=== PATIENT | male | born 1960 | race Hispanic/Latino ===

== ENCOUNTER 2023-04-03 07:27 | Day surgery (SDC) | payer OTHER ==
[2023-03-30 11:14] VITALS: BP 142/90; PULSE 77; RESP 16
[2023-03-30 11:22] LABS: BASOPHILS # (AUTO) 0.03 K/uL (0.00-0.20); BASOPHILS % (AUTO) 0.5 % (0.0-5.0); EOSINOPHILS # (AUTO) 0.14 K/uL (0.00-0.70); EOSINOPHILS % (AUTO) 2.5 % (0.0-8.0); HEMATOCRIT 40.8 % (42-54); IMMATURE GRANULOCYTE ABSOLUTE 0.03 K/uL (0-1); LYMPHOCYTES # (AUTO) 2.2 K/uL (1.0-4.8); LYMPHOCYTES % (AUTO) 38.3 % (21.0-51.0); MEAN CORPUSCULAR HEMOGLOBIN 30.7 pg (27.0-33.0); MEAN CORPUSCULAR HGB CONC 34.6 g/dL (32.0-36.0); MEAN CORPUSCULAR VOLUME 88.9 fL (79-99); MONOCYTES # (AUTO) 0.5 K/uL (0.1-1.0); MONOCYTES % (AUTO) 9.4 % (3.0-13.0); NEUTROPHILS # (AUTO) 2.7 K/uL (1.8-7.7); NEUTROPHILS % (AUTO) 48.8 % (40.0-77.0); PLATELET COUNT (AUTO) 210 K/uL (130-400); RED BLOOD CELL COUNT(AUTO) 4.59 MIL/uL (4.50-6.20); RED CELL DISTRIBUTION WIDTH 12.2 % (11.0-15.5); WHITE BLOOD COUNT (AUTO) 5.6 K/uL (4.8-10.8)
[2023-03-30 11:32] LABS: CREATININE 0.9 mg/dL (0.5-1.5)
[2023-03-30 11:34] LABS: INR 0.94 (0.85-1.15)
[2023-03-30 11:36] LABS: PARTIAL THROMBOPLASTIN TIME 28.1 SEC (26.3-35.5)
[2023-03-30 11:55] LABS: B-TYPE NATRIURETIC PEPTIDE 24 pg/mL (0-100)
[~2023-04-03] VITALS: Ht 170.2 cm; Wt 96.7 kg
[2023-04-03] VITALS (8 sets, daily range): BP systolic 100–144; BP diastolic 65–86; PULSE 71–83; RESP 13–18
[~2023-04-03 07:27] MED LIST: CARV6.2579 PO; CETI10TA57 PO; HYDR-3830 PO; LOSA25TA41 PO; MONT-39 PO; PARO10TA71 PO
[2023-04-03] MEDS ORDERED: 0.9%NACL 1000ML 1,000 ML IV ONE (08:36)
[2023-04-03] MEDS ORDERED: TIOT4MIS2 IH (09:16)
[2023-04-03] MEDS ORDERED: MOME13HF12 IH (09:16)
[2023-04-03] MEDS ORDERED: ROPI2TAB53 PO (09:16)
[2023-04-03] MEDS ORDERED: AEC81 PO (09:16)
[2023-04-03] MEDS ORDERED: KETO-99 OP (09:16)
[2023-04-03] MEDS ORDERED: GUAIFENESIN-CODEINE 5 ML SYRUP PO ONE (10:00)
[2023-04-03] MEDS ORDERED: NITROGLYCERIN 50MG VIAL ONE (12:41)
[2023-04-03] MEDS ORDERED: LIDOCAINE HCL 400MG/20ML VIAL ONE (12:41)
[2023-04-03] MEDS ORDERED: HEPARIN 10,000 UNIT/10ML (1,000 UNIT/ML) VIAL ONE (12:41)
[2023-04-03] MEDS ORDERED: IOHEXOL 350 MG/ML 100ML INFUS..BTL IV ONE (12:42)
[2023-04-03] MEDS ORDERED: FENTANYL CITRATE PF 50 MCG/1 ML 2ML VIAL ONE (13:37)
[2023-04-03] MEDS ORDERED: MIDAZOLAM HCL 1 MG/ML 2ML VIAL ONE (13:38)
[2023-04-03] MEDS ORDERED: IOHEXOL-350 50ML VIAL IV ONE (14:08)
[2023-04-03] MEDS ORDERED: 0.9%NACL 1000ML 1,000 ML IV SCH (14:30)
== END 2023-04-03 17:35 | disposition home or self-care (01) ==
LOC: DAH 07:27 → EDSEX 08:00 → DAH 17:35
PROVIDERS: ATTEND Internal Medicine Interventional Cardiology
DX: I25.10 Atherosclerotic heart disease of native coronary artery without angina pectoris (principal); I42.0 Dilated cardiomyopathy; I11.0 Hypertensive heart disease with heart failure; I50.22 Chronic systolic (congestive) heart failure; E66.9 Obesity, unspecified; G60.8 Other hereditary and idiopathic neuropathies; M79.609 Pain in unspecified limb; Z79.01 Long term (current) use of anticoagulants; Z79.82 Long term (current) use of aspirin; Z79.899 Other long term (current) drug therapy; Z68.32 Body mass index [BMI] 32.0-32.9, adult
CPT/HCPCS: 80048; 83880; 85025; 85610; 85730; 36415; 71045; 93005; 96360; 96361; 93458; A4223 ×3; Q9965; C1894 ×2; C1760; J3010; J3490 ×2; J7030; J2250; J1644; Q9967 ×2; A4215; A4222; A4221; A4663; A4216; A4606; 99156; 99157

== ENCOUNTER → 2023-10-22 | Outpatient (CLI) | payer OTHER ==
[~2023-10-22] VITALS: Ht 170.2 cm; Wt 95.3 kg
[~2023-10-22] MED LIST changes: +AEC81 PO; +ALBU18HF7 IH; +CHOL100040 PO; +FLUT1BLS9 IH; +GABA300C PO; +HYDR-3421 PO; +KETO-99 OP; +KETOROLAC 30MG VIAL (30MG/ML) ONE; +MOME13HF12 IH; +OLOP5DRO26 OU; +PARO30TA60 PO; +ROPI2TAB53 PO; +ROPIVACAINE 0.5% 5MG/ML 30ML ONE; +SACU1TAB7 PO; +TIOT4MIS2 IH; +TRANEXAMIC ACID 1000MG/10ML ONE
[2023-10-22 11:46] LABS: BASOPHILS # (AUTO) 0.03 K/uL (0.00-0.20); BASOPHILS % (AUTO) 0.6 % (0.0-5.0); EOSINOPHILS # (AUTO) 0.23 K/uL (0.00-0.70); EOSINOPHILS % (AUTO) 4.9 % (0.0-8.0); IMMATURE GRANULOCYTE ABSOLUTE 0.01 K/uL (0-1); LYMPHOCYTES # (AUTO) 2.1 K/uL (1.0-4.8); MEAN CORPUSCULAR HEMOGLOBIN 30.9 pg (27.0-33.0); MEAN CORPUSCULAR VOLUME 90.7 fL (79-99); MONOCYTES # (AUTO) 0.4 K/uL (0.1-1.0); MONOCYTES % (AUTO) 9.1 % (3.0-13.0); NEUTROPHILS # (AUTO) 1.9 K/uL (1.8-7.7); NEUTROPHILS % (AUTO) 41.2 % (40.0-77.0); PLATELET COUNT (AUTO) 199 K/uL (130-400); RED BLOOD CELL COUNT(AUTO) 4.63 MIL/uL (4.50-6.20); RED CELL DISTRIBUTION WIDTH 12.6 % (11.0-15.5); WHITE BLOOD COUNT (AUTO) 4.7 K/uL (4.8-10.8)
[2023-10-22 11:52] LABS: INR 0.95 (0.85-1.15); PROTHROMBIN TIME 11.2 SEC (9.6-11.6)
[2023-10-22 11:53] VITALS: BP 148/71; PULSE 86; RESP 18
[2023-10-22 11:53] LABS: PARTIAL THROMBOPLASTIN TIME 26.2 SEC (26.3-35.5)
[2023-10-22 12:07] LABS: ALBUMIN 3.7 g/dL (3.5-5.0); CREATININE 0.9 mg/dL (0.5-1.3); POTASSIUM 4.2 mmol/L (3.5-5.1)
[2023-10-28 06:05] VITALS: BP 130/89; PULSE 79; RESP 19
[2023-10-28] MEDS: CEFAZOLIN SODIUM 2 GM VIAL ONE (06:24)
[2023-10-28] MEDS: LACTATED RINGERS 1000ML 1,000 ML IV ONE (08:29)
== END | disposition home or self-care (01) ==
LOC: DAH 10:46 → EDSTATUS 14:00 → DAHIP 10-28 05:43 → UNDOADMIN 10-28 05:43
PROVIDERS: ATTEND Student in an Organized Health Care Education/Training Program
DX: M17.12 Unilateral primary osteoarthritis, left knee (principal); M25.562 Pain in left knee; Z79.01 Long term (current) use of anticoagulants
CPT/HCPCS: 36415; 80048; 82040; 84134; 85025; 85610; 85730; 86140; 87641